=== PATIENT | female | born 1975 | race Two or more races ===

== ENCOUNTER 2017-10-05 15:49 | Emergency (ER) | payer BC, MEDICAID ==
[~2017-10-05] VITALS: Ht 152.4 cm; Wt 40.4 kg
[~2017-10-05 15:49] MED LIST: LEVO88TA5 PO
--- NOTE | 2017-10-05 16:00 | NUR ---
Pt was triaged and placed in ER waiting room because there are no ER beds available at this time.
--- NOTE | 2017-10-05 16:59 | NUR ---
Pt was not found in ER lobby, per ER admitting pt decided to leave without being seen.
== END 2017-10-05 17:02 | disposition left against medical advice (07) ==
LOC: ER 15:51
DX: Z53.21 Procedure and treatment not carried out due to patient leaving prior to being seen by health care provider (principal)
CPT/HCPCS: A4663

== ENCOUNTER 2017-12-28 08:09 | Emergency (ER) | payer BC ==
[~2017-12-28] VITALS: Ht 149.9 cm; Wt 45.4 kg
--- NOTE | 2017-12-28 08:25 | NUR ---
Dr Hall is at bedside doing the MSE. Patient's daughter acted as the [facility] language interpreter.
--- NOTE | 2017-12-28 09:05 | NUR ---
Patient discharged to home in stable conditon & brisk steady gait. Written and verbal after care instructions given to patient and family. Patient and family members verbalized understanding of instructions.
== END 2017-12-28 09:06 | disposition home or self-care (01) ==
LOC: ER 08:09
DX: S20.219A Contusion of unspecified front wall of thorax, initial encounter (principal); M25.531 Pain in right wrist; M25.561 Pain in right knee; M25.562 Pain in left knee; E03.9 Hypothyroidism, unspecified; V43.52XA Car driver injured in collision with other type car in traffic accident, initial encounter; Y93.89 Activity, other specified; Y99.8 Other external cause status; Y92.410 Unspecified street and highway as the place of occurrence of the external cause
CPT/HCPCS: 71045; 73110; 73560; A4663

== ENCOUNTER 2018-10-23 12:56 | Emergency (ER) | payer BC, MEDICAID ==
[~2018-10-23] VITALS: Ht 152.4 cm; Wt 38.6 kg
[2018-10-23] MEDS ORDERED: MORPHINE SULFATE 2 MG/1 ML DISP.SYRIN IV ONE (13:30)
[2018-10-23] MEDS ORDERED: IV NS 1000 ML 1,000 ML IV ONE (13:30)
[2018-10-23] MEDS ORDERED: METOCLOPRAMIDE HCL 10 MG/2 ML VIAL IV ONE (13:30)
[2018-10-23] MEDS ORDERED: KETOROLAC TROMETHAMINE 30 MG INJ IVP ONE (13:30)
[2018-10-23] MEDS ORDERED: METOCLOPRAMIDE HCL 10 MG/2 ML VIAL ONE (13:42)
[2018-10-23] MEDS ORDERED: KETOROLAC TROMETHAMINE 30 MG INJ ONE (13:42)
[2018-10-23] MEDS ORDERED: MORPHINE SULFATE 2 MG/1 ML DISP.SYRIN ONE (13:42)
--- NOTE | 2018-10-23 13:47 | NUR ---
Patient taken down for head ct.
--- NOTE | 2018-10-23 14:00 | NUR ---
Pt. BACK FROM CT.
[2018-10-23] MEDS ORDERED: HALOPERIDOL LACTATE 5 MG/1 ML VIAL ONE (14:56)
--- NOTE | 2018-10-23 17:25 | NUR ---
dcd instructions given to pt. pt. left room [id number] steady gait no reports of any discomfort.
== END 2018-10-23 17:25 | disposition home or self-care (01) ==
LOC: ER 12:56
DX: G43.909 Migraine, unspecified, not intractable, without status migrainosus (principal); R11.10 Vomiting, unspecified; E03.9 Hypothyroidism, unspecified; Z79.899 Other long term (current) drug therapy
CPT/HCPCS: 70450; 96361; 96374; 96375; 99284; J1885; J2270; J2765; A4663; J1630; J7030

== ENCOUNTER 2020-12-20 12:25 | Emergency (ER) | payer BC, MEDICAID ==
[~2020-12-20] VITALS: Ht 157.5 cm; Wt 42.2 kg
[2020-12-20] MEDS ORDERED: IV NORMAL SALINE 1000 ML BAG IV ONE (12:45)
[2020-12-20] MEDS ORDERED: METOCLOPRAMIDE HCL 10 MG/2 ML VIAL IV ONE (12:45)
[2020-12-20] MEDS ORDERED: METOCLOPRAMIDE HCL 10 MG/2 ML VIAL ONE (13:01)
[2020-12-20] MEDS ORDERED: IBUP-1955 PO (13:49)
--- NOTE | 2020-12-20 14:00 | NUR ---
Removed IV intact, site okay, bandaged. Gave pt RX and d/c instructions, pt verbalized understanding.
== END 2020-12-20 14:07 | disposition home or self-care (01) ==
LOC: ER 12:25
DX: G43.909 Migraine, unspecified, not intractable, without status migrainosus (principal); E03.9 Hypothyroidism, unspecified; Z79.890 Hormone replacement therapy
CPT/HCPCS: 96361; 96374; 99284; J2765; A4663; J7030